=== PATIENT | female | born 2005 | race Caucasian/White ===

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

== ENCOUNTER 2024-08-17 14:17 | Emergency (ER) | payer BC ==
[2024-08-17 14:21] VITALS: TEMP 98.1
--- NOTE | 2024-08-17 14:38 | ED ---
General Adult HPI - General Source: patient, RN notes reviewed, old records reviewed Mode of arrival: ambulatory Limitations: no limitations <Gaudencio Ortiz - Last Filed: 08/17/24 14:37> - General Source: patient, RN notes reviewed, old records reviewed Mode of arrival: ambulatory Limitations: no limitations <Braydon Parrish - Last Filed: 08/18/24 16:44> - General Chief complaint: Psychiatric Symptoms Stated complaint: Mental health eval Time Seen by Provider: 08/17/24 14:20 - History of Present Illness Initial comments: 19-year-old female presenting for evaluation of hallucination both auditory and visual. Patient mother had contacted [facility] and they requested the patient be evaluated in the emergency department. Patient is currently on Abilify and sertraline. She denies illicit drugs or alcohol. No physical complaints. No suicidal or homicidal ideation. (Gaudencio Ortiz) 19 female to ER presented by [facility] for psychiatric evaluation (Braydon Parrish) - Related Data Home Medications Medication Instructions Recorded Confirmed ARIPiprazole [Abilify] 20 mg PO DAILY 08/17/24 08/17/24 Sertraline [Zoloft] 50 mg PO HS 08/17/24 08/17/24 Allergies Allergy/AdvReac Type Severity Reaction Status Date / Time No Known Allergies Allergy Verified 08/17/24 14:51 Review of Systems ROS Other: All systems not noted in ROS Statement are negative. <Gaudencio Ortiz - Last Filed: 08/17/24 14:37> ROS Other: All systems not noted in ROS Statement are negative. <Braydon Parrish - Last Filed: 08/18/24 16:44> ROS Statement: Those systems with pertinent positive or pertinent negative responses have been documented in the HPI. Past Medical History Past Medical History: No Reported History History of Any Multi-Drug Resistant Organisms: None Reported Past Surgical History: No Surgical Hx Reported Past Psychological History: Schizoaffective Disorder Smoking Status: Never smoker Past Alcohol Use History: None Reported Past Drug Use History: None Reported <Gaudencio Ortiz - Last Filed: 08/17/24 14:37> General Exam Limitations: no limitations General appearance: alert, in no apparent distress Head exam: Present: atraumatic, normocephalic Eye exam: Present: normal appearance, PERRL ENT exam: Present: normal exam Neck exam: Present: normal inspection. Absent: tenderness, meningismus Respiratory exam: Present: normal lung sounds bilaterally. Absent: respiratory distress, wheezes Cardiovascular Exam: Present: regular rate, normal rhythm GI/Abdominal exam: Present: soft. Absent: distended, tenderness, guarding Neurological exam: Present: alert, oriented X3, CN II-XII intact. Absent: motor sensory deficit Psychiatric exam: Present: anxious, flat affect. Absent: suicidal ideation Skin exam: Present: warm, dry, intact <Gaudencio Ortiz Jeanine - Last Filed: 08/17/24 14:37> General appearance: alert, in no apparent distress Head exam: Present: atraumatic, normocephalic, normal inspection Eye exam: Present: normal appearance, PERRL, EOMI. Absent: scleral icterus, conjunctival injection, periorbital swelling ENT exam: Present: normal exam, mucous membranes moist Neck exam: Present: normal inspection. Absent: tenderness, meningismus, lymphadenopathy Respiratory exam: Present: normal lung sounds bilaterally. Absent: respiratory distress, wheezes, rales, rhonchi, stridor Cardiovascular Exam: Present: regular rate, normal rhythm, normal heart sounds. Absent: systolic murmur, diastolic murmur, rubs, gallop, clicks GI/Abdominal exam: Present: soft, normal bowel sounds. Absent: distended, tenderness, guarding, rebound, rigid Extremities exam: Present: normal inspection, full ROM, normal capillary refill. Absent: tenderness, pedal edema, joint swelling, calf tenderness Back exam: Present: normal inspection Neurological exam: Present: alert, oriented X3, CN II-XII intact Psychiatric exam: Present: normal affect, normal mood Skin exam: Present: warm, dry, intact, normal color. Absent: rash <Braydon Parrish - Last Filed: 08/18/24 16:44> Course <Braydon Parrish - Last Filed: 08/18/24 16:44> Vital Signs 08/17/24 08/17/24 14:19 15:58 Temperature 98.1 F Pulse Rate 83 65 Respiratory 20 17 Rate Blood Pressure 102/63 89/66 O2 Sat by Pulse 99 100 Oximetry - Reevaluation(s) Reevaluation #1: 08/17/24 16:40 Medical records reviewed (Braydon Parrish) Reevaluation #2: 08/17/24 16:40 Medically cleared for psychiatric evaluation (Braydon Parrish) Reevaluation #3: Differential Mental Health Depression, anxiety, bipolar, psychosis, schizophrenia, borderline personality, situational depression, adjustment disorder, behavioral disorder, brain tumor, malingering, substance abuse, encephalopathy, medication reaction, dementia, hypothyroidism, degenerative neurologic disorder, lupus.... This is not meant to be all-inclusive list (Braydon Parrish) Medical Decision Making <Gaudencio Ortiz - Last Filed: 08/17/24 14:37> <Braydon Parrish - Last Filed: 08/18/24 16:44> - Medical Decision Making Was pt. sent in by a medical professional or institution (, PA, [employer]TINGS TIGHTENER, urgent care, hospital, or longterm...) When possible be specific @ -No Did you speak to anyone other than the patient for history (EMS, parent, family, police, friend...)? What history was obtained from this source @ -No Did you review nursing and triage notes (agree or disagree)? Why? @ -I reviewed and agree with nursing and triage notes Were old charts reviewed (outside hosp., previous admission, EMS record, old EKG, old radiological studies, urgent care reports/EKG's, longterm records)? Report findings @ -No old charts were reviewed Differential Mental Health Depression, anxiety, bipolar, psychosis, schizophrenia, borderline personality, situational depression, adjustment disorder, behavioral disorder, brain tumor, malingering, substance abuse, encephalopathy, medication reaction, dementia, hypothyroidism, degenerative neurologic disorder, lupus.... This is not meant to be all-inclusive list EKG interpreted by me (3pts min.). @ -As above X-rays interpreted by me (1pt min.). @ -None done CT interpreted by me (1pt min.). @ -None done U/S interpreted by me (1pt. min.). @ -None done What testing was considered but not performed or refused? (CT, X-rays, U/S, labs)? Why? @ -None What meds were considered but not given or refused? Why? @ -None Did you discuss the management of the patient with other professionals (professionals i.e. , PA, [employer] T[employer]ENER, lab, RT, psych nurse, social worker health services, corporate lawyer, teacher, [employer]oc [employer] operations staff officer, case management rn)? Give summary @ -No Was smoking cessation discussed for >3mins.? @ -No Was critical care preformed (if so, how long)? @ -No Were there social determinants of health that impacted care today? How? (Homelessness, low income, unemployed, alcoholism, drug addiction, transportation, low edu. Level, literacy, decrease access to med. care, usp, rehab)? @ -No Was there de-escalation of care discussed even if they declined (Discuss DNR or withdrawal of care, Hospice)? DNR status @ -No What co-morbidities impacted this encounter? (DM, HTN, Smoking, COPD, CAD, Cancer, CVA, ARF, Chemo, Hep., AIDS, mental health diagnosis, sleep apnea, morbid obesity)? @ -None Was patient admitted / discharged? Hospital course, mention meds given and route, prescriptions, significant lab abnormalities, going to OR and other pertinent info. @ -Patient medically clear, care signed out to oncoming physician awaiting EPS evaluation. (Gaudencio Ortiz) 19 female to ER for psychiatric evaluation, patient be transferred for inpatient psychiatric evaluation and treatment (Braydon Parrish) Disposition <Gaudencio Ortiz - Last Filed: 08/17/24 14:37> Is patient prescribed a controlled substance at d/c from ED?: No Time of Disposition: 15:40 <Braydon Parrish - Last Filed: 08/18/24 16:44> Clinical Impression: Mood disorder Disposition: HOME SELF-CARE Condition: Good Instructions (If sedation given, give patient instructions): Mood Disorders (ED) Referrals: Janny Arboleda MD [Primary Care Provider] - 1-2 days
[2024-08-17 16:01] VITALS: BP 89/66; PULSE 65; RESP 17
== END 2024-08-17 15:58 | disposition home or self-care (01) ==
LOC: EC 14:17
DX: F39 Unspecified mood [affective] disorder (principal)
CPT/HCPCS: 82075; 99284